=== PATIENT | female | born 1980 | race African-American/Black ===

== ENCOUNTER → 2019-01-01 | Outpatient (CLI) | payer OTHER ==
--- NOTE | 2019-01-02 07:23 | REP ---
BILATERAL DIAGNOSTIC MAMMOGRAM AND BREAST ULTRASOUND: There is no family history of breast cancer. Tyrer-Cuzick lifetime risk of breast cancer 14.2%. There is a history of a palpable lump in the upper outer quadrant of the left breast which is marked on the skin with a triangular marker. Additional spot compression views are obtained. Moderate heterogenous fibroglandular tissue is seen bilaterally. In the outer right breast there is a nodular opacity laterally measuring slightly greater than 1 cm in diameter. No discrete mass or architectural distortion is seen elsewhere in either breast. No clustered microcalcifications are seen. Real-time sonographic evaluation of bilateral breasts are performed at the site of the palpable lump in the upper outer quadrant of the left breast there is dense fibroglandular tissue without a discrete cystic or solid mass. Laterally in the right breast at about 8 o'clock there is a cyst with thin septations measuring 1.4 x 1.0 x 1.4 cm which is felt to correspond to the nodule on the mammogram. Two subcentimeter cysts were seen at 10 and 11 o'clock, maximum diameter 6 mm and 5 mm respectively. IMPRESSION: ACR 2 benign. No mass seen in the left breast in the upper outer quadrant at the site of the palpable lump. Only dense fibroglandular tissue is seen at that location both mammographically and sonographically. Clinical correlation and followup is recommended. BIRADS 2: BI-RADS/ACR category 2 mammogram. Benign Findings. On the right a nodule laterally represents a benign cyst by ultrasound. Recommend followup bilateral mammogram in one year. This mammogram was interpreted with the aid of an FDA-approved computer-aided detection system. The patient states she had a clinical breast exam in 11/2018. The patient letter being requested is M2. Electronically Signed by Andrew Still MD 01/03/2019 10:08 A
== END ==
LOC: M RAD 10:27
PROVIDERS: ATTEND Nurse Practitioner Primary Care
DX: Z12.31 Encounter for screening mammogram for malignant neoplasm of breast (principal)